=== PATIENT | male | born 1980 | race African-American/Black ===

== ENCOUNTER 2021-09-02 17:22 | Emergency (ER) | payer SELFPAY ==
[2021-09-02 17:37] VITALS: BP 115/68; PULSE 64; TEMP 98.1; BMI 21.2
[2021-09-02] MEDS ORDERED: DIPHTH,PERTUSS(ACELL),TET 0.5 ML DISP.SYRIN IM ONE ×2 (19:29→19:35)
== END 2021-09-02 19:56 | disposition home or self-care (01) ==
LOC: JER 17:22 → JERFT 17:22
PROC: 0HQLXZZ Repair Left Lower Leg Skin, External Approach (ICD-10-PCS; principal; 2021-09-02)
PROC: 3E0234Z Introduction of Serum, Toxoid and Vaccine into Muscle, Percutaneous Approach (ICD-10-PCS; 2021-09-02)
DX: S81.812A Laceration without foreign body, left lower leg, initial encounter (principal); W26.8XXA Contact with other sharp object(s), not elsewhere classified, initial encounter
CPT/HCPCS: 90715; 99282-25